=== PATIENT | female | born 1955 | race Two or more races ===

== ENCOUNTER → 2017-03-16 | Emergency (ER) | payer OTHER ==
[~2017-03-16] VITALS: Ht 167.6 cm; Wt 84.4 kg
[~2017-03-16] MED LIST: CLIMARA; CLIMARA1 PATCH.WK TD; DICLOFENAC SODI50 MG PO; SYNTHROID100 MCG PO; SYNTHROID88 MCG PO
== END | disposition home or self-care (01) ==
LOC: ER 08:02
DX: S80.01XA Contusion of right knee, initial encounter (principal); W10.8XXA Fall (on) (from) other stairs and steps, initial encounter; Y93.89 Activity, other specified; Y92.098 Other place in other non-institutional residence as the place of occurrence of the external cause; Y99.8 Other external cause status

== ENCOUNTER → 2017-05-07 14:23 | Outpatient (CLI) | payer OTHER | END | disposition home or self-care (01) | LOC: LAB 14:23 | DX: Z00.00 Encounter for general adult medical examination without abnormal findings (principal) ==

== ENCOUNTER 2017-05-17 13:51 | Outpatient (CLI) | payer OTHER | END 2017-05-17 14:21 | disposition home or self-care (01) | LOC: MAMO-SONO 13:51 | DX: N60.11 Diffuse cystic mastopathy of right breast (principal); N60.12 Diffuse cystic mastopathy of left breast; N64.59 Other signs and symptoms in breast; Z12.31 Encounter for screening mammogram for malignant neoplasm of breast ==

== ENCOUNTER 2017-08-10 14:10 | Outpatient (CLI) | payer OTHER | END 2017-08-10 15:00 | disposition home or self-care (01) | LOC: NUCLEAR 14:10 | DX: R22.41 Localized swelling, mass and lump, right lower limb (principal); R22.42 Localized swelling, mass and lump, left lower limb; R22.43 Localized swelling, mass and lump, lower limb, bilateral; M25.561 Pain in right knee; I83.10 Varicose veins of unspecified lower extremity with inflammation ==

== ENCOUNTER 2017-08-21 11:37 | Outpatient (CLI) | payer OTHER | END 2017-08-21 11:40 | disposition home or self-care (01) | LOC: RAD 11:37 | DX: M79.642 Pain in left hand (principal) ==

== ENCOUNTER 2017-10-09 13:47 | Outpatient (CLI) | payer OTHER | END 2017-10-09 13:59 | disposition home or self-care (01) | LOC: MRI 13:47 | DX: M23.8X2 Other internal derangements of left knee (principal) | CPT/HCPCS: 73721 ==

== ENCOUNTER 2017-11-20 14:09 | Outpatient (CLI) | payer OTHER | END 2017-11-20 14:17 | disposition home or self-care (01) | LOC: LAB 14:09 | DX: E03.8 Other specified hypothyroidism (principal); Z13.1 Encounter for screening for diabetes mellitus ==

== ENCOUNTER 2017-11-30 13:01 | Outpatient (CLI) | payer OTHER | END 2017-11-30 13:44 | disposition home or self-care (01) | LOC: NUCLEAR 13:01 | DX: I70.203 Unspecified atherosclerosis of native arteries of extremities, bilateral legs (principal); I83.10 Varicose veins of unspecified lower extremity with inflammation ==

== ENCOUNTER 2017-12-21 13:53 | Outpatient (CLI) | payer OTHER | END 2017-12-21 13:58 | disposition home or self-care (01) | LOC: EKG 13:53 | DX: R03.0 Elevated blood-pressure reading, without diagnosis of hypertension (principal) ==

== ENCOUNTER 2018-01-08 05:35 | Day surgery (SDC) | payer OTHER ==
[2018-01-08] MEDS ORDERED: ALEVE220 M1 PO (08:38)
[2018-01-08] MEDS ORDERED: ULTRACET PO (08:38)
[2018-01-08] MEDS ORDERED: DUI500 PO (08:38)
== END 2018-01-08 11:15 | disposition home or self-care (01) ==
LOC: CIR.AMB 05:35
DX: S83.232A Complex tear of medial meniscus, current injury, left knee, initial encounter (principal); M67.232 Synovial hypertrophy, not elsewhere classified, left forearm; M94.262 Chondromalacia, left knee

== ENCOUNTER → 2018-05-14 10:34 | Outpatient (CLI) | payer OTHER ==
[~2018-05-14 10:34] MED LIST changes: +ALEVE220 M1 PO; +DUI500 PO; +ULTRACET PO
== END | disposition home or self-care (01) ==
LOC: MAMO-SONO 10:34
DX: Z12.31 Encounter for screening mammogram for malignant neoplasm of breast (principal)

== ENCOUNTER 2018-05-14 11:03 | Outpatient (CLI) | payer OTHER | END 2018-05-14 13:00 | disposition home or self-care (01) | LOC: LAB 11:03 | DX: N39.0 Urinary tract infection, site not specified (principal); E03.8 Other specified hypothyroidism; I10 Essential (primary) hypertension ==

== ENCOUNTER 2018-07-24 11:02 | Outpatient (CLI) | payer OTHER | END 2018-07-24 11:05 | disposition home or self-care (01) | LOC: MRI 11:02 | DX: M54.5 Low back pain (principal) | CPT/HCPCS: 72148 ==

== ENCOUNTER 2018-08-22 09:49 | Emergency (ER) | payer OTHER ==
[~2018-08-22] VITALS: Ht 167.6 cm; Wt 86.2 kg
== END 2018-08-22 16:41 | disposition home or self-care (01) ==
LOC: ER 09:49
DX: R42 Dizziness and giddiness (principal); R60.0 Localized edema

== ENCOUNTER 2018-10-15 10:34 | Outpatient (CLI) | payer OTHER | END 2018-10-15 10:56 | disposition home or self-care (01) | LOC: LAB 10:34 | DX: R03.0 Elevated blood-pressure reading, without diagnosis of hypertension (principal); Z13.6 Encounter for screening for cardiovascular disorders; M79.671 Pain in right foot; M79.672 Pain in left foot; L98.2 Febrile neutrophilic dermatosis [Sweet] ==

== ENCOUNTER → 2019-03-18 09:37 | Outpatient (CLI) | payer OTHER | END | disposition home or self-care (01) | LOC: LAB 09:37 | DX: E03.8 Other specified hypothyroidism (principal); E78.2 Mixed hyperlipidemia ==

== ENCOUNTER → 2021-01-10 | Outpatient (CLI) | payer OTHER | END | disposition home or self-care (01) | LOC: NUCLEAR 08:00 | PROVIDERS: ATTEND Family Medicine | DX: I73.9 Peripheral vascular disease, unspecified (principal) ==

== ENCOUNTER 2022-06-08 03:55 | Emergency (ER) | payer OTHER ==
[~2022-06-08] VITALS: Ht 167.6 cm; Wt 86.2 kg
== END 2022-06-08 10:36 | disposition home or self-care (01) ==
LOC: ER 03:55
DX: R10.11 Right upper quadrant pain (principal); Z88.8 Allergy status to other drugs, medicaments and biological substances; K80.10 Calculus of gallbladder with chronic cholecystitis without obstruction

== ENCOUNTER 2022-06-28 07:00 | Day surgery (SDC) | payer OTHER ==
[~2022-06-28] VITALS: Ht 165.1 cm; Wt 84.4 kg
[~2022-06-28 07:00] MED LIST changes: +SYNTHROID75 MCG PO; +ZESTRIL20 MG PO
[2022-06-28] MEDS ORDERED: TRAM1TAB98 PO (10:46)
[2022-06-28] MEDS ORDERED: NEURONTIN300 MG PO (10:46)
== END 2022-06-28 14:30 | disposition home or self-care (01) ==
LOC: CIR.AMB 07:00
PROVIDERS: ATTEND Surgery
DX: K80.10 Calculus of gallbladder with chronic cholecystitis without obstruction (principal); Z20.822 Contact with and (suspected) exposure to COVID-19; I10 Essential (primary) hypertension; F17.210 Nicotine dependence, cigarettes, uncomplicated